=== PATIENT | male | born 1970 | race African-American/Black ===

== ENCOUNTER → 2016-11-10 | Outpatient (CLI) | payer OTHER | LOC: RAD 10:14 | PROVIDERS: ATTEND Internal Medicine Medical Oncology | DX: R59.0 Localized enlarged lymph nodes (principal) | CPT/HCPCS: 70491; 82565 ==

== ENCOUNTER → 2018-01-26 | Outpatient (CLI) | payer OTHER ==
--- NOTE | 2018-01-27 13:43 | RADIOLOGY REPORT (SQ) ---
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 TECHNIQUE: Blood glucose level was verified. Above dose of FDG was injected intravenously. 2-D seg mented attenuation correction images were obtained from the base of the skull to the midthighs. Nonc ontrast CT images were obtained for attenuation correction and fusion with emission images. CT image s were performed without oral or intravenous contrast and are not sensitive for parenchymal lesions. A series of overlapping emission PET images were obtained. Images reviewed and manipulated at [facility] work station by the radiologist. Images stored on PACS. LIMITATIONS: None. FINDINGS: HEAD AND NECK: Bilateral pharyngeal tonsils are normal in size but have increased uptake w ith SUV 9.5. This is nonspecific. No metabolically active adenopathy worrisome for recurrent lymphoma CHEST: No areas of abnormal metabolic activity in the chest. ABDOMEN AND PELVIS: No areas of abnormal metabolic activity in the abdomen or pelvis. Expected physi ologic activity is present in the genitourinary system and bowel. PROXIMAL LOWER EXTREMITIES: No areas of abnormal metabolic activity in the soft tissues of the lower extremities. BONES: No abnormal metabolic activity in the visualized skeleton. ADDITIONAL CT FINDINGS: Ventriculoperitoneal shunt. Left-sided permanent central line tip superior v rosanna cava. Post cholecystectomy. OTHER: Liver background activity 2.5 SUV. Blood pool background activity 1.8 SUV IMPRESSION: Normal size pharyngeal tonsils with increased uptake. Abnormal but nonspecific. No metabolically active lymph nodes worrisome for recurrent lymphoma TECHNICAL DOCUMENTATION: JOB ID: [id number] [id number]- All Rights Reserved Reading location - IP/workstation name: [facility]-RR
== END ==
LOC: RAD 18:20
PROVIDERS: ATTEND Internal Medicine Medical Oncology
DX: C85.11 Unspecified B-cell lymphoma, lymph nodes of head, face, and neck (principal)
CPT/HCPCS: 78815; A9552